=== PATIENT | male | born 1995 | race Two or more races ===

== ENCOUNTER 2017-06-27 22:39 | Emergency (ER) | payer MEDICAID ==
[~2017-06-27] VITALS: Ht 180.3 cm; Wt 120.7 kg
[2017-06-27] MEDS ORDERED: Morphine Sulfate 4mg/ml Inj IVP ONE (23:00)
[2017-06-27] MEDS ORDERED: Ketorolac 30mg Inj IV ONE (23:00)
[2017-06-27 23:09] LABS: APPEARANCE,URINE CLEAR; BILIRUBIN, URINE NEGATIVE (NEGATIVE); COLOR,URINE PALE YELLOW; GLUCOSE, URINE (UA) NEGATIVE (NEGATIVE); KETONES,URINE NEGATIVE (NEGATIVE); LEUKOCYTE ESTERASE ,URINE NEGATIVE (NEGATIVE); NITRITE,URINE NEGATIVE (NEGATIVE); PH,URINE 6 (4.5-8.0); PROTEIN,URINE NEGATIVE (NEGATIVE); UROBILINOGEN,URINE NORMAL MG/DL (0.0-1.0)
[2017-06-27 23:31] VITALS: BP 141/85
[2017-06-27 23:41] LABS: BASOPHILS % (AUTO) 1.2 % (0.0-2.0); EOSINOPHILS % (AUTO) 1.8 % (0.0-3.0); HEMATOCRIT 48.7 % (42.0-52.0); HEMOGLOBIN 16.3 G/DL (14.2-18.0); LYMPHOCYTES % (AUTO) 40.3 % (20.0-45.0); MEAN CORPUSCULAR VOLUME 80 FL (80-99); MONOCYTES % (AUTO) 12.1 % (1.0-10.0); NEUTROPHILS % (AUTO) 44.6 % (45.0-75.0); PLATELET COUNT 339 K/UL (150-450); RED BLOOD COUNT 6.12 M/UL (4.70-6.10); RED CELL DISTRIBUTION WIDTH 12.3 % (11.6-14.8); WHITE BLOOD COUNT 8.2 K/UL (4.8-10.8)
[2017-06-27 23:48] LABS: ANION GAP 8 mmol/L (5-15); BLOOD UREA NITROGEN 13 mg/dL (7-18); CALCIUM 8.8 MG/DL (8.5-10.1); CARBON DIOXIDE 29 MMOL/L (21-32); CHLORIDE 100 MMOL/L (98-107); CREATININE 0.8 MG/DL (0.55-1.30); POTASSIUM 3.8 MMOL/L (3.5-5.1); SODIUM 137 MMOL/L (136-145)
[2017-06-27 23:57] LABS: ALANINE AMINOTRANSFERASE 51 U/L (12-78); ALBUMIN 3.8 G/DL (3.4-5.0); ALBUMIN/GLOBULIN RATIO 0.8 (1.0-2.7); ALKALINE PHOSPHATASE 234 U/L (46-116); ASPARTATE AMINO TRANSFERASE 34 U/L (15-37); BILIRUBIN,TOTAL 0.2 MG/DL (0.2-1.0)
[2017-06-28 01:40] VITALS: BP 121/65
[2017-06-28] MEDS ORDERED: IBUPROFEN600 MG ORAL (01:46)
--- NOTE | 2017-06-28 02:17 | Emergency Room Report ---
History of Present Illness General Chief Complaint: Abdominal Pain Source: Patient Present Illness HPI Patient presents with abdominal pain. It's been 3 weeks. He was seen on June 08 at [facility]. He had a CAT scan done that showed reactive lymph nodes however no evidence of any renal stones. He was still discharged him with a diagnosis of nephrolithiasis and abdominal pain. He states the pain is severe in his abdomen at this time. They gave him medicine for pain but no Flomax. The meds were [place] and Motrin. He has only been taking Motrin. The pain is RUQ, anterior and constant rated 9/10 and burning pressure. It does not radiate to his back. No fevers, NVD, dysuria, chest pain, dyspnea, sore throat, cough. Further review of records from [facility] reveal normal WBC, H/H and urinalysis. CMP were also normal. The patient has some stress with work. Allergies: Coded Allergies: No Known Allergies (Unverified , 06/27/17) Patient History Past Medical History: see triage record, old chart reviewed Social History: Denies: smoking, alcohol use Social History Narrative working at [employer] Reviewed Nursing Documentation: PMH: Agreed; PSxH: Agreed Review of Systems All Other Systems: negative except mentioned in HPI Physical Exam Vital Signs Date Time Temp Pulse Resp B/P (MAP) Pulse Ox O2 Delivery O2 Flow Rate FiO2 06/27/17 22:41 97.1 85 18 143/96 98 Room Air 97.2 Sp02 EP Interpretation: reviewed, normal General Appearance: well appearing, no apparent distress, GCS 15 Head: normocephalic Eyes: bilateral eye normal inspection, bilateral eye PERRL ENT: moist mucus membranes Neck: supple Respiratory: lungs clear, normal breath sounds Cardiovascular #1: regular rate, rhythm Cardiovascular #2: 2+ radial (R) Gastrointestinal: normal inspection, normal bowel sounds, no mass, non- distended, no guarding, no rebound, tenderness - RUQ Musculoskeletal: back normal, gait/station normal, normal range of motion Neurologic: alert, oriented x3, grossly normal Psychiatric: mood/affect normal Skin: normal inspection, warm/dry Medical Decision Making Diagnostic Impression: Primary Impression: Abdominal pain Qualified Codes: R10.11 - Right upper quadrant pain ER Course Patient presents with right upper quadrant pain. It has been going on for 3 weeks. They've been giving him ibuprofen to treat it. The CT scan showed reactive lymph nodes. There is no evidence of nephrolithiasis. The patient will be evaluated with labs and abdominal films. The patient will be treated for pain and also given Pepcid. Considerations for GERD, PUD, hepatitis, gall bladder disease, gastritis amongst others. Review of [facility] records calls into question their diagnosis. Labs normal. Improved with treatment. Pain free. Discussed findings with patient and need for follow up with junior architect. The patient is stable for outpatient observation and treatment. Laboratory Tests Test 06/27/17 22:56 06/27/17 23:32 Urine Color Pale yellow Urine Appearance Clear Urine pH 6 (4.5-8.0) Urine Specific [place] 1.010 (1.005-1.035) Urine Protein Negative (NEGATIVE) Urine Glucose (UA) Negative (NEGATIVE) Urine Ketones Negative (NEGATIVE) Urine Occult Blood Negative (NEGATIVE) Urine Nitrite Negative (NEGATIVE) Urine Bilirubin Negative (NEGATIVE) Urine Urobilinogen Normal MG/DL (0.0-1.0) Urine Leukocyte Esterase Negative (NEGATIVE) White Blood Count 8.2 K/UL (4.8-10.8) Red Blood Count 6.12 M/UL (4.70-6.10) H Hemoglobin 16.3 G/DL (14.2-18.0) Hematocrit 48.7 % (42.0-52.0) Mean Corpuscular Volume 80 FL (80-99) Mean Corpuscular Hemoglobin 26.7 PG (27.0-31.0) L Mean Corpuscular Hemoglobin Concent 33.6 G/DL (32.0-36.0) Red Cell Distribution Width 12.3 % (11.6-14.8) Platelet Count 339 K/UL (150-450) Mean Platelet Volume 6.9 FL (6.5-10.1) Neutrophils (%) (Auto) 44.6 % (45.0-75.0) L Lymphocytes (%) (Auto) 40.3 % (20.0-45.0) Monocytes (%) (Auto) 12.1 % (1.0-10.0) H Eosinophils (%) (Auto) 1.8 % (0.0-3.0) Basophils (%) (Auto) 1.2 % (0.0-2.0) Sodium Level 137 MMOL/L (136-145) Potassium Level 3.8 MMOL/L (3.5-5.1) Chloride Level 100 MMOL/L (98-107) Carbon Dioxide Level 29 MMOL/L (21-32) Anion Gap 8 mmol/L (5-15) Blood Urea Nitrogen 13 mg/dL (7-18) Creatinine 0.8 MG/DL (0.55-1.30) Estimate Glomerular Filtration Rate > 60 mL/min (>60) Glucose Level 92 MG/DL (74-106) Calcium Level 8.8 MG/DL (8.5-10.1) Total Bilirubin 0.2 MG/DL (0.2-1.0) Aspartate Amino Transferase (AST) 34 U/L (15-37) Alanine Aminotransferase (ALT) 51 U/L (12-78) Alkaline Phosphatase 234 U/L (46-116) H Total Protein 8.4 G/DL (6.4-8.2) H Albumin 3.8 G/DL (3.4-5.0) Globulin 4.6 g/dL Albumin/Globulin Ratio 0.8 (1.0-2.7) L Lipase 155 U/L (73-393) Last Vital Signs Date Time Temp Pulse Resp B/P (MAP) Pulse Ox O2 Delivery O2 Flow Rate FiO2 06/28/17 02:24 97.2 73 14 121/65 98 Room Air 97.2 Status: improved Disposition: HOME, SELF-CARE Condition: Improved Scripts Famotidine (PEPCID) 20 Mg Tablet 20 MG ORAL DAILY, #30 TAB 0 Refills Prov: Earle Landin M.D. 06/28/17 Tramadol Hcl* (ULTRAM*) 50 Mg Tablet 50 MG ORAL Q6H PRN for For Pain, #12 TAB 0 Refills Prov: Earle Landin M.D. 06/28/17 Referrals: NOT CHOSEN [facility]ONIDES/,REFERRING (PCP) Earle Landin M.D. Jun 28, 2017 02:17
[2017-06-28] MEDS ORDERED: TRAMADOL HCL50 MG ORAL (02:19)
[2017-06-28] MEDS ORDERED: PEPCID20 MG ORAL (02:19)
[2017-06-28 02:24] VITALS: BP 121/65
--- NOTE | 2017-06-28 09:48 | Diagnostic Imaging Report ---
Indication: Abdominal pain Technique: Supine view of the abdomen Comparison: none Findings: Bowel gas pattern is unremarkable. No unusual masses or calcifications. Impression: Negative This agrees with the preliminary interpretation provided by the emergency room physician
== END 2017-06-28 02:25 | disposition home or self-care (01) ==
LOC: EMR 22:59
DX: R10.11 Right upper quadrant pain (principal)
CPT/HCPCS: 36415; 74018; 80053; 81003; 83690; 85025; 96374; 96375; 99284; J1885; J2270; J2405